=== PATIENT | male | born 1975 | race Asian ===

== ENCOUNTER 2017-09-12 09:10 | Emergency (ER) | payer OTHER ==
[~2017-09-12] VITALS: Ht 170.2 cm; Wt 69.4 kg
[2017-09-12 09:14] VITALS: Ht 170.2 cm; Wt 69.4 kg
[2017-09-12 11:05] VITALS: BP 145/78
== END 2017-09-12 11:09 | disposition home or self-care (01) ==
LOC: ED 09:10
DX: S42.001A Fracture of unspecified part of right clavicle, initial encounter for closed fracture (principal); S20.211A Contusion of right front wall of thorax, initial encounter; I10 Essential (primary) hypertension; V19.40XA Pedal cycle driver injured in collision with unspecified motor vehicles in traffic accident, initial encounter; Y93.I9 Activity, other involving external motion; Y99.8 Other external cause status; Y92.89 Other specified places as the place of occurrence of the external cause
CPT/HCPCS: 90715; Q0162